=== PATIENT | male | born 1955 ===

== ENCOUNTER → 2019-04-29 | Outpatient (CLI) | payer OTHER ==
[~2019-04-29] MED LIST: DOXAZOSIN MESYLA4 MG; GLIPIZIDE10 MG; JANUMET 50-1,1 UDTAB; LOSARTAN-HCTZ1 EAC1; SIMVASTATIN40 MG; ZITHROMAX TRI-500 MG
== END | disposition home or self-care (01) ==
LOC: RAD 12:57
DX: M25.512 Pain in left shoulder (principal)

== ENCOUNTER 2023-07-28 12:56 | Outpatient (CLI) | payer OTHER | END 2023-07-28 13:00 | disposition home or self-care (01) | LOC: RAD 12:56 | PROVIDERS: ATTEND Internal Medicine Rheumatology | DX: M17.11 Unilateral primary osteoarthritis, right knee (principal); M17.12 Unilateral primary osteoarthritis, left knee ==